=== PATIENT | female | born 1980 | race Caucasian/White ===

== ENCOUNTER 2019-11-11 11:05 | Emergency (ER) | payer BC, OTHER ==
[2019-11-11] MEDS ORDERED: HYDROmorphone HCL INJ 2 MG/ML VIAL IV ONE ×2 (11:13→13:41)
--- NOTE | 2019-11-11 11:17 | ED.PDOC ---
History of Present Illness - General Chief Complaint: Back Pain or Injury Time Seen by Provider: 11/11/19 11:07 Additional Information: 39-year-old female, smoker presenting to the ER with excruciating right-sided paraspinal pain, no trauma no fever no chills symptoms began yesterday, she is a smoker Denies any medical problems With a history of back pain She is very tearful during the initial evaluation. Patient able to speak in complete sentences, denies any recent travel surgeries - History of Present Illness Timing/Duration: other - Yesterday Quality/Severity: severe Back Pain Location: paraspinous muscles Method of Injury/Prior Injury: other - No trauma Improving Factors: nothing Worsening Factors: nothing Associated Symptoms: other - Shortness of breath Allergies/Adverse Reactions: Allergies NO KNOWN ALLERGY Allergy (Verified 09/22/12 09:41) Review of Systems - Review of Systems Constitutional: States: no symptoms reported EENTM: States: no symptoms reported, tearing Respiratory: States: short of breath Cardiology: States: no symptoms reported Gastrointestinal/Abdominal: States: no symptoms reported Genitourinary: States: no symptoms reported Musculoskeletal: States: no symptoms reported Skin: States: no symptoms reported Neurological: States: no symptoms reported Endocrine: States: no symptoms reported Hematologic/Lymphatic: States: no symptoms reported Family Medical History - Family History Mother Living Status: Still Living Physical Exam - Physical Exam General Appearance: Anxious Eyes, Ears, Nose, Throat Exam: PERRL/EOMI, normal ENT inspection, TMs normal Neck Exam: non-tender, full range of motion, normal alignment, normal inspection Cardiovascular/Respiratory: regular rate, rhythm, no M/R/G, normal peripheral pulses, no JVD, normal breath sounds, no respiratory distress Peripheral Pulses: radial,right: 2+, radial,left: 2+ Gastrointestinal/Abdominal: normal bowel sounds, non tender, soft, no organomegaly, no pulsatile mass, other - No Colón sign negative right upper quadrant pain Back Exam: muscle spasm, other - Right posterior paraspinal and costophrenic pain Extremity Exam: no evidence of injury, normal range of motion, non-tender 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 This is a 39-year-old female presented to the ER with right-sided paraspinal and posterior costal pain EKG did show some sinus tachycardia with a heart of 105 no short IA no delta wave no wide QRS because patient 39 smoker I decided to add a d-dimer troponin CBC and chemistry and a chest x-ray I do suspect that this is mostly muscular, Chest x-ray showed what looked like a right lower quadrant x-ray show what it look to be a right lower lobe infiltrate so at this point I was concerned for possible pneumonia, I ordered a covid test and also order blood cultures up with the patient on Rocephin and Zithromax The d-dimer cells were elevated which is concerning for pneumonia D-dimers were ordered seen patient cannot be PERC, because she was tachycardic CT a of the chest showed evidence of right-sided pleural effusion with right PE, and also with bilateral PEs The moment patient is able to speak in complete sentences does not be hypoxic heart rate is 95 I ordered dose of Lovenox at 1 mg/kg 11/11/19 13:12 11/11/19 13:15 Patient troponins were negative patient refused to be transferred to [place] so we will try to [place]. Patient has not had any family history of pulmonary embolism nor clotting disease, or recent surgery or travel Risk factors apparent risk factor will be sedentary lifestyle And is not tachycardic normotensive and a pulse ox of 98%, which suggests no evidence of cardiovascular collapse Departure - Departure Clinical Impression: Pulmonary embolism Qualifiers: Pulmonary embolism type: other Chronicity: acute Acute cor pulmonale presence: without acute cor pulmonale Qualified Code(s): I26.99 - Other pulmonary embolism without acute cor pulmonale Disposition: Transfer to Hospital Condition: Fair Referrals: Dmitri Farley MD [Primary Care Provider] - 1-2 Weeks Transfer to Outside Facility - Transfer Information Decision to Transfer Date: 11/11/19 Decision to Transfer Time: 13:17 Reason for Transfer: higher level of care Accepting Facility: [place]
--- NOTE | 2019-11-11 11:32 | RAD ---
EXAM DESCRIPTION: Chest,1 View CLINICAL HISTORY: right side pain COMPARISON: 22 September 2012 TECHNIQUE: AP portable chest FINDINGS: Focal infiltrate is observed in the right lung base. The left chest is clear. The heart is within range of normal. IMPRESSION: Focal infiltrate is observed in the right lung base and may represent evidence of pneumonia. Electronically signed by: Jabier Andersen MD 11/11/2019 11:30 AM CDT
[2019-11-11] MEDS ORDERED: cefTRIAXone SODIUM 1 GM in SODIUM CHL 0.9% 50ML MIN-BAG+ 50 ML IVPB ONE (12:10)
[2019-11-11] MEDS ORDERED: AZITHROMYCIN IV 500 MG in SODIUM CHLORIDE 0.9% 250ML 250 ML IVPB ONE (12:10)
--- NOTE | 2019-11-11 12:25 | US ---
EXAM DESCRIPTION: Abdomen,Limited: ULTRASOUND. CLINICAL HISTORY: rule out cholelithiasis COMPARISON: Chest radiograph on this visit and CTA of the chest. TECHNIQUE: Transabdominal scanning: hurley-scale mode. Doppler mode. FINDINGS: Gallbladder: normal size, shape, echogenicity; no intraluminal stones or sludge. No fluid around the gallbladder. No wall thickening. 2.0 mm. Tender with transducer pressure. Common bile duct: caliber 5.7 mm within normal limits. Liver: Heterogeneously increased echogenicity; contour liver capsule smooth where seen. No fluid around the liver. Intrahepatic biliary ducts normal caliber. Doppler hepatopedal flow and normal caliber portal vein.. Normal caliber at the tyrone hepatis 8 mm. Long axis right lobe 15.1 cm. Pancreas: normal size and echogenicity. Duct not seen. Proximal abdominal aorta: 1.9 cm normal caliber.. IVC: visualized and normal caliber. Right kidney: long axis measures 8.0 cm. Normal cortical Echogenicity. Cortical thickness 12 mm. No echogenic stones or hydronephrosis. IMPRESSION: 1. Tenderness when scanning over the gallbladder with no stones or sludge. No wall thickening. This could represent acalculous cholecystitis. Normal caliber of the common bile duct. No ascites. 2. Heterogeneous steatosis of the liver with no enlargement. Normal caliber ducts and normal vascular flow. Pancreas is negative. 3. Right kidney unremarkable except for minimal thinning of the kidney which may be related to small size kidney, which could be related to patient's stature. Correlate with renal function. Electronically signed by: Silver Ross MD 11/11/2019 12:24 PM CDT
--- NOTE | 2019-11-11 12:55 | CT ---
EXAM DESCRIPTION: CTA Chest CLINICAL HISTORY: 39 years Female, rule out PE COMPARISON: None available TECHNIQUE: Contiguous thin section axial images through the chest were obtained after the administration of intravenous contrast. MIPS, Sagittal and coronal reconstructions were reviewed. FINDINGS: The visualized thyroid gland and supraclavicular region appear normal. No evidence of abnormally enlarged mediastinal, hilar or axillary lymphadenopathy. Trachea is midline and the central tracheobronchial tree is patent. Small right pleural effusion with associated airspace opacities of the right middle and lower lobe most likely representing atelectasis. The heart is normal in size with no pericardial effusion. The visualized aorta is nonaneurysmal with no significant atherosclerosis. The superior vena cava is normal in size and caliber.No significant coronary artery atherosclerosis. Multiple subsegmental pulmonary emboli are noted in the right upper lobe and bilateral lower lobe pulmonary arterial branches. The esophagus appears normal throughout its visualized length. Limited evaluation of the upper abdomen demonstrates no gross abnormality. Mild degenerative changes are noted throughout the visualized spine. IMPRESSION: 1. Multiple subsegmental pulmonary emboli are noted in the right upper lobe and bilateral lower lobe pulmonary arterial branches. 2. Small right pleural effusion. Airspace opacities in the right middle lobe and right lower lobe most likely represent atelectasis. This exam was performed according to our departmental dose-optimization program, which includes automated exposure control, adjustment of the mA and/or kV according to patient size and/or use of iterative reconstruction technique. Electronically signed by: Kathleen Hunter MD 11/11/2019 12:53 PM CDT
[2019-11-11] MEDS ORDERED: ENOXAPARIN SODIUM 30 MG/0.3 ML SYG SUBCU ONE (13:35)
[2019-11-11] MEDS ORDERED: ENOXAPARIN SODIUM 100 MG/ML SYG SUBCU ONE ×2 (13:35→13:38)
[2019-11-11 15:09] VITALS: O2SAT 96
[2019-11-11 16:07] VITALS: BP 137/98; TEMP 98.5
== END 2019-11-11 15:40 | disposition short-term general hospital (02) ==
LOC: ER 11:05
DX: I26.99 Other pulmonary embolism without acute cor pulmonale (principal); R00.0 Tachycardia, unspecified; F17.200 Nicotine dependence, unspecified, uncomplicated
CPT/HCPCS: 36415; 71045; 71275; 76775; 80053; 84484; 84703; 85025; 85379; 87040; 93005; J0456; J0696; J1170; J1650; J7050

== ENCOUNTER 2020-01-21 14:20 | Emergency (ER) | payer OTHER ==
--- NOTE | 2020-01-21 14:32 | ED.PDOC ---
History of Present Illness - General Time Seen by Provider: 01/21/20 14:30 Source: patient - History of Present Illness Initial Comments: 39-year-old female with past medical history of lupus, PEs on Xarelto who presents with chief complaint of chest pain and shortness of breath. Reports onset of some chest discomfort last night but acutely worsened about 3 hours ago. Reports tingling pain in her anterior chest, radiates throughout her chest, up her neck and face and also down the left arm, constant, 8/10 severity, worse with activity/exertion and also palpation of the chest wall, no medications taken for relief prior to arrival. Also reports marked dyspnea. Denies any fevers, chills, cough, sore throat, abdominal pain, nausea/vomiting, leg swelling or pain, urinary symptoms. She reports recently 2 months ago she was diagnosed with 15 pulmonary emboli in her lungs at [facility]. 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 Allergies/Adverse Reactions: Allergies NO KNOWN ALLERGY Allergy (Verified 09/22/12 09:41) Home Medications: Ambulatory Orders Rivaroxaban [Xarelto] 20 mg PO 01/21/20 Review of Systems - Review of Systems Review of Systems: 01/21/20 15:00 as per HPI All other Systems: Reviewed and Negative Past Medical History (General) - Patient Medical History Hx Congestive Heart Failure: No Hx Cancer: Yes - cervical - Social History Hx Alcohol Use: Yes - Female History Patient : No Family Medical History - Family History Mother Living Status: Still Living Physical Exam - Physical Exam General Appearance: Alert, Obvious distress - tachypneic Eye Exam: bilateral normal Ears, Nose, Throat: hearing grossly normal, normal ENT inspection, normal pharynx Neck: full range of motion, supple, normal inspection Respiratory: lungs clear, normal breath sounds, accessory muscle use - increased respiratory effort, tachypnea, speaking in short sentences, SpO2 100% RA, other - chest pain reproducible on palpation of chest wall Cardiovascular/Chest: normal peripheral pulses, regular rate, rhythm, no edema, no gallop, no JVD, no murmur Peripheral Pulses: radial,right: 2+, radial,left: 2+ Gastrointestinal/Abdominal: non tender, soft, no organomegaly Back Exam: normal inspection, no CVA tenderness Extremity: normal range of motion, non-tender, normal inspection, no pedal edema, no calf tenderness, normal capillary refill 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 Chest x-ray without acute processes upon arrival per my read. No evidence of pneumothorax/hemothorax, no mediastinal shift, heart size appears normal. -Obtain stat cardiac work-up. Patient moved to trauma room near crash cart. Will give Ativan 2 mg IV and Phenergan 12.5 mg IV in the ED. Ketamine 200 mg IV ordered at bedside in case of need. Nasal cannula oxygen placed. Patient is improving after oxygen placement. 01/21/20 17:28 -Patient resting comfortably in the ED bed, vitals remain within normal limits. She reports chest pain is fully resolved with rest and Ativan in the ED. Her respiratory distress resolved pretty quickly after Ativan. Ketamine was never given. Her lab work is largely unremarkable including troponin x2 in the ED after 2 hours. Repeat EKG is unchanged. Chest x-ray is normal. HEART score is 2. Given her history of PE, CTA chest was obtained which revealed no evidence of PE or other acute processes. -I suspect most likely her acute symptoms on presentation are likely due to anxiety and panic attack. It is possible that she may have some component of vocal cord dysfunction, but this is a very difficult diagnosis to make in the ED. Symptoms do not appear to be cardiac related. PE has also been ruled out. Discussed all findings and diagnoses with patient. Will discharge home in good condition, return warnings discussed at length. I advised that she follow-up closely with her primary care physician for further outpatient evaluation and management. Colin Liang MD Billing #[id number] 01/21/20 14:30 Sodium Chloride 0.9% (Flush) [Saline Flush Syringe] 10 ml IV PRN PRN 01/21/20 14:31 Telemetry .ONCE 01/21/20 14:45 EKG STAT 01/21/20 15:30 RESPIRATORY PANEL 2 Stat 01/21/20 16:15 EKG STAT 01/22/20 09:00 Pulse Ox Daily Laboratory Results - last 24 hr 01/21/20 01/21/20 01/21/20 14:30 14:30 14:30 WBC 7.4 RBC 4.42 Hgb 12.7 Hct 37.1 MCV 84.0 MCH 28.8 MCHC 34.2 RDW 14.5 Plt Count 295 MPV 7.4 Absolute Neuts (auto) 3.80 Absolute Lymphs (auto) 2.80 Absolute Monos (auto) 0.40 Absolute Eos (auto) 0.30 Absolute Basos (auto) 0.10 Neutrophils % 51.8 Lymphocytes % 37.5 Monocytes % 6.0 Eosinophils % 3.9 Basophils % 0.8 D-Dimer, Quantitative < 131.0 L Sodium 138 Potassium 3.5 L Chloride 106 Carbon Dioxide 21 Anion Gap 14.5 BUN 9 Creatinine 0.98 BUN/Creatinine Ratio 9.2 L Random Glucose 123 H Serum Osmolality 275.7 Calcium 8.9 Total Bilirubin 0.4 AST 15 ALT 14 Alkaline Phosphatase 54 Troponin I B-Natriuretic Peptide 31.4 Serum Total Protein 7.1 Albumin 3.7 Globulin 3.4 Albumin/Globulin Ratio 1.1 Urine Color Urine Appearance Urine pH Ur Specific [place] Urine Protein Urine Glucose (UA) Urine Ketones Urine Blood Urine Nitrite Urine Bilirubin Urine Urobilinogen Ur Leukocyte Esterase Urine RBC Urine WBC Ur Epithelial Cells Amorphous Sediment Urine Bacteria 01/21/20 01/21/20 01/21/20 14:30 16:10 16:51 WBC RBC Hgb Hct MCV MCH MCHC RDW Plt Count MPV Absolute Neuts (auto) Absolute Lymphs (auto) Absolute Monos (auto) Absolute Eos (auto) Absolute Basos (auto) Neutrophils % Lymphocytes % Monocytes % Eosinophils % Basophils % D-Dimer, Quantitative Sodium Potassium Chloride Carbon Dioxide Anion Gap BUN Creatinine BUN/Creatinine Ratio Random Glucose Serum Osmolality Calcium Total Bilirubin AST ALT Alkaline Phosphatase Troponin I < 0.02 < 0.02 B-Natriuretic Peptide Serum Total Protein Albumin Globulin Albumin/Globulin Ratio Urine Color Yellow Urine Appearance Clear Urine pH 5.5 Ur Specific [place] 1.010 Urine Protein Negative Urine Glucose (UA) Negative Urine Ketones Negative Urine Blood Negative Urine Nitrite Negative Urine Bilirubin Negative Urine Urobilinogen 0.2 Ur Leukocyte Esterase Negative Urine RBC 0 Urine WBC 0 Ur Epithelial Cells 5-10 Amorphous Sediment 1+ Urine Bacteria 0 - EKG/XRAY/CT EKG: Sinus - Normal sinus rhythm, heart rate 90, no ST elevations noted, Q waves in anterior leads possibly indicative of prior MD, axis normal, intervals normal, compared to 11/11/2019 EKG sinus tachycardia is now resolved but otherwise appears unchanged. XRAY: chest - No acute processes per my read - Additional EKG/XRAY/Consults EKG #2: Unchanged from - initial Departure - Departure Clinical Impression: Anxiety, Panic attack Time of Disposition: 17:25 Disposition: Discharge to Home or Self Care Condition: Good Departure Forms: ED Discharge - Work Release Instructions: Anxiety, Adult (DC) Diet: resume usual diet Activity: increase activity as tolerated Referrals: Dmitri Farley MD [Primary Care Provider] - 1-2 Weeks Home Medications: Ambulatory Orders Rivaroxaban [Xarelto] 20 mg PO 01/21/20 Additional Instructions: Remain well-hydrated and advance your diet and activity level as tolerated. Return to the ED if you develop worsening or changing chest pain, shortness of breath, fevers, chills, or other concerning symptoms. Close follow-up with your primary care physician is recommended in the next 1 to 2 weeks for repeat evaluation or sooner as needed. You may benefit from further outpatient work-up such as cardiac stress testing, evaluation for possible anxiety and panic disorder, etc.
--- NOTE | 2020-01-21 14:53 | RAD ---
EXAM DESCRIPTION: Chest,1 View CLINICAL HISTORY: chest pain COMPARISON: November 11, 2019 IMPRESSION: Single AP portable upright view of the chest shows cardiac silhouette and pulmonary vasculature to be within normal limits. Lungs are normally aerated and clear. Interval resolution of the right lower lobe infiltrate seen on previous exam. No obvious pleural effusion or pneumothorax is seen. Electronically signed by: Mk Cole MD 01/21/2020 2:51 PM CDT
[2020-01-21] MEDS ORDERED: PROMETHAZINE HCL INJ 25 MG/ML VIAL ONE (14:54)
[2020-01-21] MEDS ORDERED: KETAMINE HCL 100 MG/ML VIAL ONE (15:00)
--- NOTE | 2020-01-21 15:58 | CT ---
EXAM DESCRIPTION: CTA Chest CLINICAL HISTORY: 39 years Female, dyspnea, respiratory distress, hx of PE's COMPARISON: 11 November 2019 TECHNIQUE: Transaxial images were obtained with intravenous contrast media. Multiplanar reconstruction was performed. No 3-D reconstruction was performed.This exam was performed according to our departmental dose-optimization program, which includes automated exposure control, adjustment of the mA and/or kV according to patient size and/or use of iterative reconstruction technique. FINDINGS: The thyroid is normal in appearance. The thoracic aorta is normal in appearance. No evidence for pulmonary embolus is seen. No pleural fluid is identified. No adrenal masses are detected. Minimal atelectatic type parenchymal lung disease is observed in the right lower lobe. No focal infiltrate is seen. No pulmonary nodule or mass is detected. IMPRESSION: No evidence of pulmonary embolus is detected. Electronically signed by: Jabier Andersen MD 01/21/2020 3:57 PM CDT
[2020-01-21] MEDS: ASPIRIN (CHEWABLE) 81 MG TAB PO ONE (16:38)
[2020-01-21] MEDS: SODIUM CHLORIDE 0.9% (FLUSH) 10 ML SYG IV PRN (16:39)
[2020-01-21] MEDS: PROMETHAZINE HCL INJ 12.5 MG in SODIUM CHLORIDE 0.9% 50ML 50 ML IVPB ONE (16:40)
[2020-01-21] MEDS: NITROGLYCERIN 0.4 MG 25 EA TAB SL ONE (16:43)
[2020-01-21 17:38] VITALS: TEMP 97.9
[2020-01-21 17:59] VITALS: BP 101/80; O2SAT 98
== END 2020-01-21 17:50 | disposition home or self-care (01) ==
LOC: ER 14:20
DX: F41.0 Panic disorder [episodic paroxysmal anxiety] (principal); R07.89 Other chest pain; Z79.01 Long term (current) use of anticoagulants; Z20.828 Contact with and (suspected) exposure to other viral communicable diseases
CPT/HCPCS: 36415; 71045; 71275; 80053; 81001; 81025; 83880; 84484; 85025; 85379; 87635; 93005; 94760; J2060; J2550

== ENCOUNTER 2020-04-20 15:16 | Emergency (ER) | payer BC, OTHER ==
--- NOTE | 2020-04-20 16:02 | RAD ---
EXAM DESCRIPTION: Chest,1 View CLINICAL HISTORY: Shortness of breath, hx of PE's, COMPARISON: Chest radiograph and chest CTA dated January 21, 2020 TECHNIQUE: One view radiograph of the chest FINDINGS: Cardiac silhouette shows normal heart size. Pulmonary vascularity is within normal limits. Lungs show no confluent infiltrates. No pleural effusion. No pneumothorax. No acute osseous abnormality. IMPRESSION: No acute cardiopulmonary process. Electronically signed by: Jabier Kingsley MD 04/20/2020 4:00 PM DYE BOX OPERATOR
--- NOTE | 2020-04-20 16:38 | ED.PDOC ---
History of Present Illness - General Chief Complaint: Respiratory Problem Stated Complaint: sob, back pain Time Seen by Provider: 04/20/20 15:20 Source: patient Exam Limitations: no limitations - History of Present Illness Initial Comments: The patient is a 39-year-old female presented emergency room secondary to sensation of mild shortness of breath as well as a little bit of pain between her shoulder blades with taking deep breaths. The patient was started on Levaquin a couple of days ago by her primary care doctor for the possibility of a mild bronchitis starting. She had a negative coronavirus test at that time. No productive cough. No fever. She does have a history of pulmonary emboli and takes Xarelto already. No swelling of the legs. No hypoxia, in fact she is 99 to 100% on room air. Vital signs are within normal limits. No hypotension. Lung barker are clear. Timing/Duration: other - 48 hours Severity: moderate Improving Factors: nothing Worsening Factors: nothing Associated Symptoms: shortness of breath Allergies/Adverse Reactions: Allergies Fish Allergy Allergy (Verified 04/20/20 15:38) Home Medications: Ambulatory Orders Rivaroxaban [Xarelto] 20 mg PO DAILY 01/21/20 Levofloxacin 1 each PO DAILY 04/20/20 Review of Systems - Review of Systems Constitutional: States: malaise EENTM: States: no symptoms reported Respiratory: States: short of breath Cardiology: States: no symptoms reported Gastrointestinal/Abdominal: States: no symptoms reported Musculoskeletal: States: back pain - Upper Skin: States: no symptoms reported Neurological: States: anxiety Endocrine: States: no symptoms reported, intolerance to heat All other Systems: No Change from Baseline Past Medical History (General) - Patient Medical History Hx Seizures: No Hx Stroke: No Hx Dementia: No Hx Asthma: No Hx of COPD: No Hx Cardiac Disorders: No Hx Congestive Heart Failure: No Hx Pacemaker: No Hx Hypertension: No Hx Thyroid Disease: No Hx Diabetes: No Hx Gastroesophageal Reflux: No Hx Renal Disease: No Hx Cancer: No Hx of HIV: No Hx Hepatitis C: No Hx MRSA: No Surgical History: Hysterectomy - Vaccination History Hx Tetanus, Diphtheria Vaccination: Yes Hx Influenza Vaccination: No Hx Pneumococcal Vaccination: No - Social History Hx Tobacco Use: No Hx Chewing Tobacco Use: No Hx Alcohol Use: Yes Hx Substance Use: No Hx Substance Use Treatment: No Hx Depression: No Feels Threatened In Home Enviroment: No Feels Threatened In a Relationship: No Hx Physical Abuse: No Hx Emotional Abuse: No Hx Suspected Abuse: No - Female History Patient is a Female of Child Bearing Age (10 -59 yrs old): Yes Patient : No - Triage Comment ED Triage Comment: The patient walked from the waiting room to ER bed one and appeared anxious and short of breath. She complained of pain when taking a deep breath and pain across her back between her shoulder blades. She is being treated for a URI and has a history of PE's. She denied nausea and diarrhea and had no other noted complaints at the time of assessment. Family Medical History - Family History Mother Living Status: Still Living Physical Exam - Physical Exam General Appearance: Alert, Anxious, No apparent distress Eye Exam: bilateral normal Ears, Nose, Throat: normal pharynx Neck: full range of motion, supple Respiratory: lungs clear, normal breath sounds, no respiratory distress, no accessory muscle use Cardiovascular/Chest: normal peripheral pulses, regular rate, rhythm, no edema, other - Bilateral rhomboid discomfort to palpation Peripheral Pulses: radial,right: 2+, radial,left: 2+ Gastrointestinal/Abdominal: non tender - Obese, soft Rectal Exam: deferred Back Exam: no vertebral tenderness, other - Bilateral rhomboid discomfort palpation Extremity: normal range of motion, non-tender, normal inspection, no pedal edema, normal capillary refill 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 The patient is concerned as she has had a history of pulmonary emboli in the past. The patient is already on Levaquin as an antibiotic and she can continue that. Lung barker are clear on the chest x-ray and a D-dimer is nondetectable on our assay. She does need to continue her Xarelto for PE prevention. Anti-inflammatories can be used for discomfort of her back. I would encourage her to try to slow down the breathing as hyperventilation can increase muscle spasms. Keep well-hydrated. ER warnings are given. renard [email or web address] - Results/Orders Results/Orders: Coronavirus test is a send out. EKG shows sinus tachycardia 107 bpm. Normal axis. Borderline R wave progression. No ST segment or T wave changes definitive for ischemia. Mild left atrial dilation. Normal QT interval. Chest x-ray shows no acute pathology. Laboratory Results - last 24 hr 04/20/20 04/20/20 04/20/20 15:35 15:35 15:35 WBC 7.3 RBC 5.07 Hgb 14.5 Hct 42.1 MCV 83.1 MCH 28.6 MCHC 34.4 RDW 13.5 Plt Count 285 MPV 7.6 Absolute Neuts (auto) 3.00 Absolute Lymphs (auto) 3.50 H Absolute Monos (auto) 0.50 Absolute Eos (auto) 0.30 Absolute Basos (auto) 0.10 Neutrophils % 41.1 L Lymphocytes % 47.6 Monocytes % 6.4 Eosinophils % 3.6 Basophils % 1.3 PT INR PTT (SP) Fibrinogen D-Dimer, Quantitative Sodium 132 L Potassium 3.8 Chloride 101 Carbon Dioxide 20 L Anion Gap 14.8 BUN 12 Creatinine 0.96 BUN/Creatinine Ratio 12.5 Random Glucose 104 Serum Osmolality 264.6 L Lactic Acid Calcium 8.7 Magnesium 1.8 Ferritin 42.6 Total Bilirubin 0.6 AST 16 ALT 14 Alkaline Phosphatase 61 LD Total 105 Creatine Kinase 46 CK-MB (CK-2) 1.0 Troponin I < 0.02 C-Reactive Protein < 0.8 B-Natriuretic Peptide 11.3 Serum Total Protein 7.3 Albumin 3.7 Globulin 3.6 H Albumin/Globulin Ratio 1.0 L TSH 2.46 04/20/20 04/20/20 15:35 15:35 WBC RBC Hgb Hct MCV MCH MCHC RDW Plt Count MPV Absolute Neuts (auto) Absolute Lymphs (auto) Absolute Monos (auto) Absolute Eos (auto) Absolute Basos (auto) Neutrophils % Lymphocytes % Monocytes % Eosinophils % Basophils % PT 11.2 H INR 1.13 PTT (SP) 26.5 Fibrinogen 418 H D-Dimer, Quantitative < 100.0 L Sodium Potassium Chloride Carbon Dioxide Anion Gap BUN Creatinine BUN/Creatinine Ratio Random Glucose Serum Osmolality Lactic Acid 2.1 Calcium Magnesium Ferritin Total Bilirubin AST ALT Alkaline Phosphatase LD Total Creatine Kinase CK-MB (CK-2) Troponin I C-Reactive Protein B-Natriuretic Peptide Serum Total Protein Albumin Globulin Albumin/Globulin Ratio TSH Departure - Departure Clinical Impression: Pain, upper back Dyspnea Qualifiers: Dyspnea type: shortness of breath Qualified Code(s): R06.02 - Shortness of breath; R06.00 - Dyspnea, unspecified; R06.01 - Orthopnea Disposition: Discharge to Home or Self Care Condition: Fair Departure Forms: ED Discharge - Pt. Copy, Patient Portal Self Enrollment Instructions: Upper Back Pain (DC) Diet: regular diet Activity: increase activity as tolerated Referrals: Dmitri Farley MD [Primary Care Provider] - 1-2 Weeks Home Medications: Ambulatory Orders Rivaroxaban [Xarelto] 20 mg PO DAILY 01/21/20 Levofloxacin 1 each PO DAILY 04/20/20 Additional Instructions: The patient is a 39-year-old female presented to emergency room secondary to a sensation of shortness of breath and discomfort between the s houlder blades. The patient is concerned as she has had a history of pulmonary emboli in the past. The patient is already on Levaquin as an antibiotic and she can continue that. Lung barker are clear on the chest x-ray and a D-dimer is nondetectable on our assay. She does need to continue her Xarelto for PE prevention. Anti-inflammatories can be used for discomfort of her back. I would encourage her to try to slow down the breathing as hyperventilation can increase muscle spasms. Keep well-hydrated. ER warnings are given.
[2020-04-20 16:55] VITALS: BP 107/82; TEMP 97.6; O2SAT 98
== END 2020-04-20 16:55 | disposition home or self-care (01) ==
LOC: ER 15:16
DX: R06.02 Shortness of breath (principal); M54.6 Pain in thoracic spine; R00.0 Tachycardia, unspecified; Z79.01 Long term (current) use of anticoagulants; Z86.711 Personal history of pulmonary embolism; Z91.013 Allergy to seafood; Z20.828 Contact with and (suspected) exposure to other viral communicable diseases

== ENCOUNTER → 2020-06-15 | Outpatient (CLI) | payer BC | LOC: GMAJ 16:44 | PROVIDERS: ATTEND Family Medicine | DX: M25.59 Pain in other specified joint (principal) ==

== ENCOUNTER 2020-07-29 12:33 | Emergency (ER) | payer BC ==
[2020-07-29] MEDS: SODIUM CHLORIDE 0.9% (FLUSH) 10 ML SYG IV PRN (12:51)
[2020-07-29] MEDS: HYDROmorphone HCL INJ 2 MG/ML VIAL IV ONE (13:02)
[2020-07-29] MEDS: ONDANSETRON INJ 4 MG/2 ML VIAL IV ONE (13:04)
--- NOTE | 2020-07-29 13:10 | RAD ---
EXAM DESCRIPTION: Chest,1 View CLINICAL HISTORY: chest pain COMPARISON: None. IMPRESSION: Single AP portable upright view of the chest shows cardiac silhouette and pulmonary vasculature to be within normal limits. Lungs are normally aerated and clear. No obvious pleural effusion or pneumothorax is seen. Electronically signed by: Mk Cole MD 07/29/2020 1:09 PM [facility]
--- NOTE | 2020-07-29 13:46 | CT ---
EXAM DESCRIPTION: CTA Chest CLINICAL HISTORY: chest pain, hx of PE. COMPARISON: January 21, 2020 TECHNIQUE: Postcontrast CT images of the chest are obtained using pulmonary embolism imaging protocol. Three-D MIP reconstructed images of the arterial vasculature are obtained. Coronal and sagittal reconstructed images of the also provided. This exam was performed according to our departmental dose-optimization program, which includes automated exposure control, adjustment of the mA and/or kV according to patient size and/or use of iterative reconstruction technique . FINDINGS: The heart and great vessels are within normal limits. No coronary artery calcifications. Suboptimal opacification of the pulmonary arteries is seen, but the exam is diagnostic. No filling defects or emboli are seen in the pulmonary arteries. No pleural or pericardial effusion. No pathologically enlarged mediastinal, hilar, or axillary lymphadenopathy seen. Lungs are normally aerated and clear. Osseous structures show no aggressive bony lesions. Mild disc degenerative changes and facet arthropathy of the thoracic spine. IMPRESSION: No CT evidence of pulmonary embolism is seen. No acute findings on CT of the chest. Electronically signed by: Mk Cole MD 07/29/2020 1:[address]
--- NOTE | 2020-07-29 14:32 | ED.PDOC ---
History of Present Illness - General Chief Complaint: Chest Pain/[place] Stated Complaint: chest pain, back pain for 2 days Time Seen by Provider: 07/29/20 12:39 Source: patient, RN notes reviewed, Vital Signs reviewed Exam Limitations: no limitations - History of Present Illness Initial Comments: Patient is a 39-year-old obese white female who presents with 2 weeks of ongoing chest pain. This pain is been constant. It is stabbing in nature. It is in her central chest. The pain is moderate in intensity. It does not radiate. Nothing makes the pain better or worse. Patient has a history of pulmonary emboli. She is on Xarelto. Timing/Duration: constant, other - 2 weeks Severity: moderate Worsening Factors: nothing Associated Symptoms: denies symptoms Allergies/Adverse Reactions: Allergies Fish Allergy Allergy (Verified 04/20/20 15:38) Home Medications: Ambulatory Orders Rivaroxaban [Xarelto] 20 mg PO DAILY 01/21/20 Acetamin W/Cod #3 Tab [Tylenol w/CODEINE #3] 1 tablet PO TID 6 Days #18 tab 07/29/20 Acetaminophen W/ Codeine [Tylenol W/ CODEINE #3] 1 tab PO TID 5 Days #15 tab 07/29/20 Cyclobenzaprine HCl [Flexeril] 10 mg PO TID #21 tab 07/29/20 Escitalopram [Lexapro] 10 mg PO DAILY 07/29/20 Omeprazole Magnesium [Prilosec Otc] 20 mg PO BEDTIME 07/29/20 Review of Systems - Review of Systems Constitutional: States: no symptoms reported, see HPI. Denies: chills, fever, malaise, weakness EENTM: States: no symptoms reported. Denies: eye pain, blurred vision, double vision Respiratory: States: no symptoms reported. Denies: cough, orthopnea, short of breath, stridor, wheezing Cardiology: States: see HPI, chest pain. Denies: palpitations, syncope Gastrointestinal/Abdominal: States: no symptoms reported. Denies: abdominal pain, diarrhea, nausea, vomiting Genitourinary: States: no symptoms reported. Denies: dysuria, frequency Musculoskeletal: Denies: back pain, joint pain, neck pain Skin: States: no symptoms reported. Denies: change in color, rash Neurological: States: no symptoms reported. Denies: headache, tingling, tremors, weakness Endocrine: States: no symptoms reported. Denies: increased hunger, increased thirst, increased urine Hematologic/Lymphatic: States: see HPI, easy bleeding - Patient is on Xarelto, easy bruising - Patient is on Xarelto All other Systems: Reviewed and Negative Past Medical History (General) - Patient Medical History Hx Seizures: No Hx Stroke: No Hx Dementia: No Hx Asthma: No Hx of COPD: No Hx Cardiac Disorders: No - HTN Hx Congestive Heart Failure: No Hx Pacemaker: No Hx Hypertension: Yes Hx Thyroid Disease: No Hx Diabetes: No Hx Gastroesophageal Reflux: No Hx Renal Disease: No Hx Cancer: Yes - hysterectomy Hx of HIV: No Hx Hepatitis C: No Hx MRSA: No Surgical History: Hysterectomy - Vaccination History Hx Tetanus, Diphtheria Vaccination: No Hx Influenza Vaccination: No Hx Pneumococcal Vaccination: No Immunizations Up to Date: Yes - Social History Hx Tobacco Use: No Hx Chewing Tobacco Use: No Hx Alcohol Use: Yes - social Hx Substance Use: No Hx Substance Use Treatment: No Hx Depression: No Feels Threatened In Home Enviroment: No Hx Physical Abuse: No Hx Emotional Abuse: No Hx Suspected Abuse: No - Female History Patient is a Female of Child Bearing Age (10 -59 yrs old): No - hysterectomy Patient : No Family Medical History - Family History Mother Living Status: Still Living Physical Exam - Physical Exam General Appearance: Alert, Anxious, Obese, Well Developed, Well Groomed, Well Hydrated, Well Nourished Eye Exam: bilateral normal Ears, Nose, Throat: hearing grossly normal, normal ENT inspection, normal pharynx Neck: non-tender, full range of motion, supple Respiratory: chest non-tender, lungs clear, normal breath sounds, no respiratory distress, no accessory muscle use Cardiovascular/Chest: normal peripheral pulses, regular rate, rhythm, no edema, no gallop, no JVD, no murmur Peripheral Pulses: radial,right: 2+, radial,left: 2+ Gastrointestinal/Abdominal: normal bowel sounds, non tender, soft Back Exam: normal inspection, no CVA tenderness, no vertebral tenderness Extremity: normal range of motion, non-tender, normal inspection, no pedal edema, no calf tenderness 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 07/29/20 15:03 Labs are relatively unremarkable. Troponin does not show any cardiac injury. EKG does not show acute coronary syndrome or acute [place]. The CTA of the chest does not show PE or pneumonia. I suspect patient has some radiated back pain. Plan on discharge home with some muscle relaxers and pain meds and follow-up with PCP. Of discussed this plan of care with the patient she voices understanding and agreement. Juan F Angulo M.D. #[id number] - Results/Orders Results/Orders: EXAM DESCRIPTION: Chest,1 View CLINICAL HISTORY: chest pain COMPARISON: None. IMPRESSION: Single AP portable upright view of the chest shows cardiac silhouette and pulmonary vasculature to be within normal limits. Lungs are normally aerated and clear. No obvious pleural effusion or pneumothorax is seen. Electronically signed by: Mk Cole MD 07/29/2020 1:09 PM SYSTEMS ANALYST ENGINEER EKG performed 29 July 2020 at 1322 hrs.: Normal sinus rhythm at 73 bpm, normal axis deviation, no ST or T wave changes concerning for ischemia, normal EKG. EXAM DESCRIPTION: CTA Chest CLINICAL HISTORY: chest pain, hx of PE. COMPARISON: January 21, 2020 TECHNIQUE: Postcontrast CT images of the chest are obtained using pulmonary embolism imaging protocol. Three-D MIP reconstructed im ages of the arterial vasculature are obtained. Coronal and sagittal reconstructed images of the also provided. This exam was performed according to our departmental dose-optimization program, which includes automated exposure control, adjustment of the mA and/or kV according to patient size and/or use of iterative reconstruction technique . FINDINGS: The heart and great vessels are within normal limits. No coronary artery calcifications. Suboptimal opacification of the pulmonary arteries is seen, but the exam is diagnostic. No filling defects or emboli are seen in the pulmonary arteries. No pleural or pericardial effusion. No pathologically enlarged mediastinal, hilar, or axillary lymphadenopathy seen. Lungs are normally aerated and clear. Osseous structures show no aggressive bony lesions. Mild disc degenerative changes and facet arthropathy of the thoracic spine. IMPRESSION: No CT evidence of pulmonary embolism is seen. No acute findings on CT of the chest. Electronically signed by: Mk Cole MD 07/29/2020 1:44 PM SYSTEMS ANALYST ENGINEER 07/29/20 12:40 IV Care:Saline Lock per Protoc QSHIFT Telemetry ONCE Sodium Chloride 0.9% (Flush) [Saline Flush Syringe] 3 ml IV PRN PRN Pulse Oximetry Assessment DAILY URINALYSIS Stat 07/29/20 12:45 EKG STAT 07/30/20 09:00 Pulse Ox Daily Laboratory Results - last 24 hr 07/29/20 12:45 WBC 7.8 RBC 4.66 Hgb 12.9 Hct 39.3 MCV 84.3 MCH 27.6 MCHC 32.8 L RDW 14.3 Plt Count 271 MPV 7.5 Absolute Neuts (auto) 4.00 Absolute Lymphs (auto) 2.90 Absolute Monos (auto) 0.60 Absolute Eos (auto) 0.20 Absolute Basos (auto) 0.10 Neutrophils % 51.2 Lymphocytes % 37.3 Monocytes % 7.7 Eosinophils % 3.1 Basophils % 0.7 PT 10.3 INR 1.04 PTT (SP) 24.1 Sodium 135 Potassium 4.0 Chloride 102 Carbon Dioxide 23 Anion Gap 14.0 BUN 13 Creatinine 0.81 BUN/Creatinine Ratio 16.0 Random Glucose 102 Serum Osmolality 270.4 L Calcium 9.2 Magnesium 1.9 Creatine Kinase 54 CK-MB (CK-2) 1.4 CK-MB (CK-2) % Not Reportable Troponin I < 0.02 B-Natriuretic Peptide 56.5 Vital Signs 07/29/20 07/29/20 07/29/20 12:40 12:43 12:50 Temperature 97.5 F L Pulse Rate 82 Pulse Rate [ 82 monitor] Respiratory 21 Rate Blood Pressure 118/80 [Left Arm] O2 Sat by Pulse 98 100 Oximetry 07/29/20 13:04 Temperature Pulse Rate Pulse Rate [ 82 monitor] Respiratory Rate Blood Pressure [Left Arm] O2 Sat by Pulse Oximetry Departure - Departure Clinical Impression: Chest pain Qualifiers: Chest pain type: unspecified Qualified Code(s): R07.9 - Chest pain, unspecified Back pain Qualifiers: Back pain location: thoracic back pain Chronicity: acute Back pain laterality: bilateral Qualified Code(s): M54.6 - Pain in thoracic spine Time of Disposition: 15:19 Disposition: Discharge to Home or Self Care Condition: Good Departure Forms: ED Discharge - Pt. Copy, Patient Portal Self Enrollment Instructions: DI for Chest Pain, Chest Pain (DC), Upper Back Pain (DC) Diet: resume usual diet Activity: increase activity as tolerated Referrals: Dmitri Farley MD [Primary Care Provider] - 1-5 Days Prescriptions: Cyclobenzaprine HCl [Flexeril] 10 mg PO TID #21 tab Acetaminophen W/ Codeine [Tylenol W/ CODEINE #3] 1 tab PO TID 5 Days #15 tab Acetamin W/Cod #3 Tab [Tylenol w/CODEINE #3] 1 tablet PO TID 6 Days #18 tab Home Medications: Ambulatory Orders Rivaroxaban [Xarelto] 20 mg PO DAILY 01/21/20 Acetamin W/Cod #3 Tab [Tylenol w/CODEINE #3] 1 tablet PO TID 6 Days #18 tab 07/29/20 Acetaminophen W/ Codeine [Tylenol W/ CODEINE #3] 1 tab PO TID 5 Days #15 tab 07/29/20 Cyclobenzaprine HCl [Flexeril] 10 mg PO TID #21 tab 07/29/20 Escitalopram [Lexapro] 10 mg PO DAILY 07/29/20 Omeprazole Magnesium [Prilosec Otc] 20 mg PO BEDTIME 07/29/20
[2020-07-29 14:45] VITALS: TEMP 97.3
[2020-07-29 15:15] VITALS: O2SAT 98
[2020-07-29 15:30] VITALS: BP 132/94
== END 2020-07-29 15:32 | disposition home or self-care (01) ==
LOC: ER 12:33
DX: R07.9 Chest pain, unspecified (principal); E66.9 Obesity, unspecified; M54.6 Pain in thoracic spine; I10 Essential (primary) hypertension; Z79.01 Long term (current) use of anticoagulants; Z79.899 Other long term (current) drug therapy; Z91.013 Allergy to seafood; Z86.711 Personal history of pulmonary embolism
CPT/HCPCS: 36415; 71045; 71275; 80048; 82550; 82553; 83880; 84484; 85025; 85610; 85730; 93005; 94760; J1170; J2405